=== PATIENT | female | born 1950 | race Caucasian/White ===

== ENCOUNTER 2020-03-31 08:45 | Observation (INO) | payer MEDICARE, OTHER ==
--- NOTE | 2020-03-31 08:51 | EDM.PDOC ---
ED HPI GENERAL MEDICAL PROBLEM - General Chief Complaint: General Stated Complaint: weakness Time Seen by Provider: 03/31/20 08:51 Source of Information: Reports: Patient History Limitations: Reports: No Limitations - History of Present Illness INITIAL COMMENTS - FREE TEXT/NARRATIVE: Awoke this morning feeling weak and tired. Denies any contributing factors. Has been outside gardening doing her usual routine with no excessive straining, normal intake. No contributing factors that she can specifically state, significant other with her has no symptoms. Denies any falls, denies bumping or striking her head, denies any visual or auditory changes. Denies COVID exposures, denies any recent travel or medical exposures. Onset: Today, Sudden Onset Date: 03/31/20 Onset Time: 08:00 Duration: Hour(s): Location: Reports: Generalized Severity: Moderate Improves with: Reports: None Worsens with: Reports: None Associated Symptoms: Reports: No Other Symptoms - Related Data Allergies Allergy/AdvReac Type Severity Reaction Status Date / Time No Known Drug Allergies Allergy Cannot Verified 03/31/20 08:59 Remember Home Meds: Home Meds . [No Known Home Meds] 03/31/20 [History] Past Medical History - Past Health History Medical/Surgical History: Denies Medical/Surgical History Social & Family History - Family History Family Medical History: Noncontributory - Tobacco Use Smoking Status *Q: Never Smoker - Caffeine Use Caffeine Use: Reports: Coffee - Alcohol Use Alcohol Use History: Yes Alcohol Use Frequency: Rarely ED ROS GENERAL - Review of Systems Review Of Systems: See Below Constitutional: Reports: No Symptoms HEENT: Reports: No Symptoms Respiratory: Reports: No Symptoms Cardiovascular: Reports: No Symptoms Endocrine: Reports: No Symptoms GI/Abdominal: Reports: No Symptoms : Reports: No Symptoms Musculoskeletal: Reports: No Symptoms Skin: Reports: No Symptoms Neurological: Reports: No Symptoms Psychiatric: Reports: No Symptoms Hematologic/Lymphatic: Reports: No Symptoms Immunologic: Reports: No Symptoms ED EXAM, GENERAL - Physical Exam Exam: See Below Free Text/Narrative:: In a seated position, Nilan Barany testing performed left side negative, right side showing a wide "catching" horizontal nystagmus. Within minutes of testing noted an increase in nausea and dizziness. 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 Plantar flexion dorsiflexion is intact and symmetrical on command. Exam Limited By: No Limitations General Appearance: Alert, WD/WN, No Apparent Distress, Mild Distress Ears: Normal External Exam Nose: Normal Inspection, Normal Mucosa, No Blood Throat/Mouth: Normal Inspection, Normal Lips, Normal Teeth, Normal Gums, Normal Oropharynx, Normal Voice (Very soft-spoken), No Airway Compromise Head: Atraumatic, Normocephalic Neck: Normal Inspection, Supple, Non-Tender, Full Range of Motion Respiratory/Chest: No Respiratory Distress, Lungs Clear, Normal Breath Sounds, No Accessory Muscle Use, Chest Non-Tender Cardiovascular: Normal Peripheral Pulses, Regular Rate, Rhythm, No Edema, No Gallop, No JVD, No Murmur, No Rub GI/Abdominal: Normal Bowel Sounds, Soft, Non-Tender, No Organomegaly, No Distention, No Abnormal Bruit, No Mass (Female) Exam: Deferred Rectal (Female) Exam: Deferred Back Exam: Normal Inspection, Full Range of Motion, NT Extremities: Normal Inspection, Normal Range of Motion, Non-Tender, Normal Capillary Refill, No Pedal Edema Neurological: Alert, Oriented, CN II-XII Intact, Normal Cognition, Normal Reflexes, No Motor/Sensory Deficits Psychiatric: Normal Affect, Normal Mood Skin Exam: Warm, Dry, Intact, Normal Color, No Rash Lymphatic: No Adenopathy EKG INTERPRETATION EKG Date: 03/31/20 Time: 09:06 Rhythm: NSR [place]: Normal P-Wave: Present QRS: Normal ST-T: Normal QT: Normal Comparison: NA - No Prior EKG Course - Vital Signs Last Recorded V/S: Last Vital Signs Temp 36.9 C 03/31/20 08:50 Pulse 87 03/31/20 10:54 Resp 19 03/31/20 10:54 BP 142/60 H 03/31/20 10:54 Pulse Ox 96 03/31/20 10:54 - Orders/Labs/Meds Orders: Active Orders 24 hr Category Date Time Status Peripheral IV Care [RC] . DIRECTED Care 03/31/20 09:00 Inactive CULTURE URINE [RM] Stat Lab 03/31/20 10:20 Received EKG 12 Lead [EK] Stat Ther 03/31/20 08:58 Stop Req Labs: Laboratory Tests 03/31/20 03/31/20 03/31/20 Range/Units 09:11 09:11 09:11 WBC 5.86 (5.00-10.00) 10^3/uL RBC 5.29 (3.80-5.50) 10^6/uL Hgb 14.7 (12.0-16.0) g/dL Hct 44.3 (37.0-47.0) % MCV 83.7 (82.0-92.0) fL MCH 27.8 (27.0-31.0) pg MCHC 33.2 (32.0-36.0) g/dL RDW 12.8 (11.5-14.5) % Plt Count 206 (150-400) 10^3/uL MPV 9.9 (7.4-10.4) fL Immature Gran % (Auto) 0.0 (0.0-5.0) % Neut % (Auto) 68.4 (50.0-70.0) % Lymph % (Auto) 22.4 (20.0-40.0) % [place] % (Auto) 7.2 (2.0-8.0) % Eos % (Auto) 1.5 (1.0-3.0) % Baso % (Auto) 0.5 (0.0-1.0) % Neut # (Auto) 4.01 (2.50-7.00) 10^3/uL Lymph # (Auto) 1.31 (1.00-4.00) 10^3/uL [place] # (Auto) 0.42 (0.10-0.80) 10^3/uL Eos # (Auto) 0.09 L (0.10-0.30) 10^3/uL Baso # (Auto) 0.03 (0.00-0.10) 10^3/uL Immature Gran # (Auto) 0.00 (0.00-0.50) 10^3/uL Sodium 144 (136-145) mmol/L Potassium 3.6 (3.3-5.3) mmol/L Chloride 106 (98-115) mmol/L Carbon Dioxide 25.3 (21.0-32.0) mmol/L Anion Gap 16.3 H (5-15) mmol/L BUN 15 (6-25) mg/dL Creatinine 0.74 (0.51-1.17) mg/dL Est Cr Clr Drug Dosing 56.75 mL/min Estimated GFR (MDRD) > 60 mL/min Glucose 117 H (75 - 99) mg/dL Calcium 8.8 (8.7-10.3) mg/dL Total Bilirubin 0.6 (0.2-1.0) mg/dL AST 15 (15-37) U/L ALT 17 (12-78) U/L Alkaline Phosphatase 75 (46-116) IU/L Creatine Kinase 107 (26-276) U/L CK-MB (CK-2) 1.30 (0.00-4.30) ng/mL Troponin I 0.04 (0.00-0.070) ng/mL Total Protein 7.2 (6.4-8.2) g/dL Albumin 3.69 (3.00-4.80) g/dL TSH, Ultra Sensitive 1.420 (0.340-4.820) uIU/mL Specimen Type Urine Color (YELLOW) Urine Appearance (CLEAR) Urine pH (5.0-9.0) Ur Specific [place] (1.005-1.030) Urine Protein (NEGATIVE) mg/dL Urine Glucose (UA) (NEGATIVE) mg/dL Urine Ketones (NEGATIVE) mg/dL Urine Occult Blood (NEGATIVE) Urine Nitrite (NEGATIVE) Urine Bilirubin (NEGATIVE) Urine Urobilinogen (0.2-1.0) E.U./dL Ur Leukocyte Esterase (NEGATIVE) Urine RBC (0-5) /HPF Urine WBC (0-5) /HPF Ur Epithelial Cells /LPF Amorphous Sediment (0/HPF) /HPF Urine Bacteria (NONE TO FEW) /HPF 16 Range/Units 10:20 WBC (5.00-10.00) 10^3/uL RBC (3.80-5.50) 10^6/uL Hgb (12.0-16.0) g/dL Hct (37.0-47.0) % MCV (82.0-92.0) fL MCH (27.0-31.0) pg MCHC (32.0-36.0) g/dL RDW (11.5-14.5) % Plt Count (150-400) 10^3/uL MPV (7.4-10.4) fL Immature Gran % (Auto) (0.0-5.0) % Neut % (Auto) (50.0-70.0) % Lymph % (Auto) (20.0-40.0) % [place] % (Auto) (2.0-8.0) % Eos % (Auto) (1.0-3.0) % Baso % (Auto) (0.0-1.0) % Neut # (Auto) (2.50-7.00) 10^3/uL Lymph # (Auto) (1.00-4.00) 10^3/uL [place] # (Auto) (0.10-0.80) 10^3/uL Eos # (Auto) (0.10-0.30) 10^3/uL Baso # (Auto) (0.00-0.10) 10^3/uL Immature Gran # (Auto) (0.00-0.50) 10^3/uL Sodium (136-145) mmol/L Potassium (3.3-5.3) mmol/L Chloride (98-115) mmol/L Carbon Dioxide (21.0-32.0) mmol/L Anion Gap (5-15) mmol/L BUN (6-25) mg/dL Creatinine (0.51-1.17) mg/dL Est Cr Clr Drug Dosing mL/min Estimated GFR (MDRD) mL/min Glucose (75 - 99) mg/dL Calcium (8.7-10.3) mg/dL Total Bilirubin (0.2-1.0) mg/dL AST (15-37) U/L ALT (12-78) U/L Alkaline Phosphatase (46-116) IU/L Creatine Kinase (26-276) U/L CK-MB (CK-2) (0.00-4.30) ng/mL Troponin I (0.00-0.070) ng/mL Total Protein (6.4-8.2) g/dL Albumin (3.00-4.80) g/dL TSH, Ultra Sensitive (0.340-4.820) uIU/mL Specimen Type Urincc Urine Color Yellow (YELLOW) Urine Appearance Slightly cloudy H (CLEAR) Urine pH 7.5 (5.0-9.0) Ur Specific [place] 1.020 (1.005-1.030) Urine Protein Negative (NEGATIVE) mg/dL Urine Glucose (UA) Negative (NEGATIVE) mg/dL Urine Ketones Negative (NEGATIVE) mg/dL Urine Occult Blood Negative (NEGATIVE) Urine Nitrite Negative (NEGATIVE) Urine Bilirubin Negative (NEGATIVE) Urine Urobilinogen 0.2 (0.2-1.0) E.U./dL Ur Leukocyte Esterase Small H (NEGATIVE) Urine RBC 0-5 (0-5) /HPF Urine WBC 0-5 (0-5) /HPF Ur Epithelial Cells Few /LPF Amorphous Sediment Few (0/HPF) /HPF Urine Bacteria Few (NONE TO FEW) /HPF Meds: Medications Discontinued Medications Generic Name Dose Route Start Last Admin Trade Name Freq PRN Reason Stop Dose Admin Sodium Chloride 1,000 mls @ 999 mls/hr 03/31/20 09:00 03/31/20 09:41 Normal Saline IV 03/31/20 10:00 999 mls/hr .BOLUS ONE Administration Ondansetron HCl 8 mg 03/31/20 09:39 03/31/20 09:42 Zofran IVPUSH 03/31/20 09:40 8 mg ONETIME ONE Administration Sodium Chloride 10 ml 03/31/20 09:00 03/31/20 09:47 Saline Flush FLUSH 10 ml Q8HR PRN Administration keep vein open - Radiology Interpretation Free Text/Narrative:: 2 view chest x-ray showing mild cardiomegaly with no evidence of CHF CT Results Date: 03/31/20 (Negative of any intracranial issues) CT Results Time: 11:00 - Re-Assessments/Exams Free Text/Narrative Re-Assessment/Exam: 03/31/20 10:23 Rosetta from physical therapy did a Hallpike maneuver which was negative at this time. Occasional PVCs have been seen on the monitor which was reported to us noticed during ambulance transport, but are now becoming more prominent. Unifocal presentation is noted. CT the head will be obtained to rule out any anomalies and consideration for observation status would be given pending no pertinent findings at this time. Cardiac rhythm will be continued to monitor for change or increase in PVC activity. Departure - Departure Time of Disposition: 11:17 Disposition: Admitted As Inpatient 67 Condition: Good Clinical Impression: Weakness, Dizziness, Cardiomegaly, Unifocal PVCs - Discharge Information Sepsis Event Note (ED) - Focused Exam Vital Signs: Vital Signs Temp Pulse Resp BP Pulse Ox 03/31/20 10:54 87 19 142/60 H 96 03/31/20 10:39 92 13 149/66 H 97 03/31/20 09:50 85 19 159/73 H 98 03/31/20 08:50 36.9 C 90 21 H 119/52 L ED Communication - ED Communication Date/Time Date: 03/31/20 Time Called: 11:16 - Discussed Case With (1) Discussed Case With (1): Admitting Provider Person/s Notified (1): Will Cee Date: 03/31/20 Time Called: 11:17 - Problem List & Annotations (1) Weakness SNOMED Code(s): 06247213 Code(s): R53.1 - WEAKNESS Status: Acute Priority: High Current Visit: Yes (2) Dizziness SNOMED Code(s): 728660185, 987765420 Code(s): R42 - DIZZINESS AND GIDDINESS Status: Acute Current Visit: Yes (3) Benign paroxysmal positional vertigo of right ear SNOMED Code(s): 891670543 Code(s): H81.11 - BENIGN PAROXYSMAL VERTIGO, RIGHT EAR Status: Acute Priority: High Current Visit: Yes (4) Cardiomegaly SNOMED Code(s): 7499549 Code(s): I51.7 - CARDIOMEGALY Status: Chronic Priority: Medium Current Visit: Yes (5) Unifocal PVCs SNOMED Code(s): 73107982 Code(s): I49.3 - VENTRICULAR PREMATURE DEPOLARIZATION Status: Acute Current Visit: Yes - Problem List Review Problem List Initiated/Reviewed/Updated: Yes - My Orders Last 24 Hours: My Active Orders 03/31/20 08:58 EKG 12 Lead [EK] Stat 03/31/20 09:00 Peripheral IV Care [RC] . DIRECTED 03/31/20 10:20 CULTURE URINE [RM] Stat - Assessment/Plan Last 24 Hours: My Active Orders 03/31/20 08:58 EKG 12 Lead [EK] Stat 03/31/20 09:00 Peripheral IV Care [RC] . DIRECTED 03/31/20 10:20 CULTURE URINE [RM] Stat Plan: Admission to observation status Brayan
[2020-03-31] MEDS ORDERED: Sodium Chloride 0.9% 10 ML Syringe FLUSH PRN ×2 (09:00→12:02)
[2020-03-31] MEDS ORDERED: Sodium Chloride 0.9% 1,000 ML IV ONE (09:00)
[2020-03-31] MEDS ORDERED: Ondansetron 4 MG/2 ML SDV IVPUSH ONE (09:39)
[2020-03-31 09:49] LABS: ANION GAP 16.3 mmol/L (5-15); CHLORIDE,CL 106 mmol/L (98-115); SODIUM,NA 144 mmol/L (136-145)
--- NOTE | 2020-03-31 09:56 | CR ---
[id number] RAD/RAD Chest PA And Lateral EXAM: FRONTAL AND LATERAL CHEST INDICATION: WEAKNESS. COMPARISON: None. DISCUSSION: The heart is mildly enlarged without evidence of congestive heart failure. No acute infiltrates. No effusions. IMPRESSION: 1. Mild cardiomegaly without evidence of congestive heart failure. Jevon Womack MD 03/31/20 0955 Thank you for allowing us to participate in the care of your patient.
--- NOTE | 2020-03-31 11:04 | CT ---
[id number] CT/CT Head WO IV EXAM: CT Head WO IV CLINICAL DATA: DIZZINESS AND WEAKNESS COMPARISON: NO PREVIOUS SIMILAR EXAM IS AVAILABLE FOR COMPARISON. FINDINGS: There is no mass or mass effect. There is no hemorrhage or hydrocephalus. There are no extra-axial fluid collections. There are no sites of abnormal attenuation. IMPRESSION: NO PLAIN CT EVIDENCE OF ACUTE INTRACRANIAL PROCESS. Reggie Coleman MD 03/31/20 [id number] Thank you for allowing us to participate in the care of your patient.
--- NOTE | 2020-03-31 11:49 | PCM.HP.2 ---
H&P History of Present Illness - General Date of Service: 03/31/20 Admit Problem/Dx: Admission Diagnosis/Problem Admission Diagnosis/Problem Weakness Source of Information: Patient, Old Records, Provider, RN History Limitations: Reports: No Limitations - Related Data Allergies/Adverse Reactions: Allergies Allergy/AdvReac Type Severity Reaction Status Date / Time No Known Drug Allergies Allergy Cannot Verified 03/31/20 08:59 Remember Home Medications: Home Meds . 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 Musculoskeletal History: Reports: Osteoporosis Neurological History: Reports: None Psychiatric History: Reports: None Endocrine/Metabolic History: Reports: Obesity/BMI 30+, Osteoporosis, Vitamin D Deficiency Hematologic History: Reports: None Immunologic History: Reports: None Oncologic (Cancer) History: Reports: Other (See Below) Other Oncologic History: skin cancer Dermatologic History: Reports: None - Infectious Disease History Infectious Disease History: Reports: Chicken Pox, Measles, Mumps - Past Surgical History HEENT Surgical History: Reports: None Cardiovascular Surgical History: Reports: None Respiratory Surgical History: Reports: None GI Surgical History: Reports: None Female Surgical History: Reports: Tubal Ligation Endocrine Surgical History: Reports: None Neurological Surgical History: Reports: None Oncologic Surgical History: Reports: None Dermatological Surgical History: Reports: None Social & Family History - Family History Family Medical History: Noncontributory - Tobacco Use Smoking Status *Q: Never Smoker Second Hand Smoke Exposure: Yes - Caffeine Use Caffeine Use: Reports: Coffee - Recreational Drug Use Recreational Drug Use: No H&P Review of Systems - Review of Systems: Review Of Systems: See Below General: Reports: Malaise, Weakness, Fatigue, Decreased Appetite. Denies: Fever HEENT: Reports: Headaches. Denies: Post Nasal Drip, Sore Throat, Vertigo, Visual Changes Pulmonary: Reports: No Symptoms Cardiovascular: Reports: Palpitations. Denies: Syncope, Claudication, Blood Pressure Problem Gastrointestinal: Reports: Decreased Appetite Genitourinary: Denies: Dysuria, Frequency, Burning, Pain, Urgency, Incontinence Musculoskeletal: Reports: No Symptoms Skin: Reports: No Symptoms Psychiatric: Reports: Anxiety. Denies: Agitation Neurological: Reports: Confusion, Dizziness. Denies: Numbness, Paresthesia, Pre-Existing Deficit, Seizure, Syncope, Tingling, Tremors, Trouble Speaking, Difficulty Walking, Change in Speech Hematologic/Lymphatic: Reports: No Symptoms Immunologic: Reports: No Symptoms Exam - Exam Exam: See Below - Vital Signs Vital Signs: Last Vital Signs Temp 98.5 F 03/31/20 08:50 Pulse 87 03/31/20 10:54 Resp 19 03/31/20 10:54 BP 142/60 H 03/31/20 10:54 Pulse Ox 96 03/31/20 10:54 Weight: 180 lb - Exam General: Alert, Oriented HEENT: PERRLA, Hearing Intact, Mucosa Moist & [place], Nares Patent, Normal Nasal Septum, Posterior Pharynx Clear, Conjunctiva Clear, EOMI, EACs Clear, TMs Clear Neck: Supple Lungs: Clear to Auscultation, Normal Respiratory Effort Cardiovascular: Regular Rate, Regular Rhythm GI/Abdominal Exam: Normal Bowel Sounds, Soft. No: Distended (Female) Exam: Deferred Back Exam: No: CVA Tenderness (L), CVA Tenderness (R) Peripheral Pulses: 2+: Radial (L), Radial (R) Skin: Warm, Dry, Intact, Other (Bilateral venous varicosities) Neurological: Cranial Nerves Intact, Normal Speech, Sensation Intact, Other (Negative pronator drift). No: Focal Deficit, Babinski Neuro Extensive - Mental Status: Alert, Oriented x3, Other (Patient memory seems to be improving) Neuro Extensive - Motor, Sensory, Reflexes: CN II-XII Intact. No: Tongue Deviation (L), Tongue Deviation (R), Dysarthria, Expressive Aphasia, Facial palsy (L), Facial Palsy (R), Abnormal Romberg, Abnormal Finger to Nose, Abnormal Heel to Kumar Psychiatric: Alert, Normal Affect - Patient Data Lab Results Last 24 hrs: Laboratory Results - last 24 hr 03/31/20 03/31/20 03/31/20 Range/Units 09:11 09:11 09:11 WBC 5.86 (5.00-10.00) 10^3/uL RBC 5.29 (3.80-5.50) 10^6/uL Hgb 14.7 (12.0-16.0) g/dL Hct 44.3 (37.0-47.0) % MCV 83.7 (82.0-92.0) fL MCH 27.8 (27.0-31.0) pg MCHC 33.2 (32.0-36.0) g/dL RDW 12.8 (11.5-14.5) % Plt Count 206 (150-400) 10^3/uL MPV 9.9 (7.4-10.4) fL Immature Gran % (Auto) 0.0 (0.0-5.0) % Neut % (Auto) 68.4 (50.0-70.0) % Lymph % (Auto) 22.4 (20.0-40.0) % [place] % (Auto) 7.2 (2.0-8.0) % Eos % (Auto) 1.5 (1.0-3.0) % Baso % (Auto) 0.5 (0.0-1.0) % Neut # (Auto) 4.01 (2.50-7.00) 10^3/uL Lymph # (Auto) 1.31 (1.00-4.00) 10^3/uL [place] # (Auto) 0.42 (0.10-0.80) 10^3/uL Eos # (Auto) 0.09 L (0.10-0.30) 10^3/uL Baso # (Auto) 0.03 (0.00-0.10) 10^3/uL Immature Gran # (Auto) 0.00 (0.00-0.50) 10^3/uL Sodium 144 (136-145) mmol/L Potassium 3.6 (3.3-5.3) mmol/L Chloride 106 (98-115) mmol/L Carbon Dioxide 25.3 (21.0-32.0) mmol/L Anion Gap 16.3 H (5-15) mmol/L BUN 15 (6-25) mg/dL Creatinine 0.74 (0.51-1.17) mg/dL Est Cr Clr Drug Dosing 56.75 mL/min Estimated GFR (MDRD) > 60 mL/min Glucose 117 H (75 - 99) mg/dL Calcium 8.8 (8.7-10.3) mg/dL Total Bilirubin 0.6 (0.2-1.0) mg/dL AST 15 (15-37) U/L ALT 17 (12-78) U/L Alkaline Phosphatase 75 (46-116) IU/L Creatine Kinase 107 (26-276) U/L CK-MB (CK-2) 1.30 (0.00-4.30) ng/mL Troponin I 0.04 (0.00-0.070) ng/mL Total Protein 7.2 (6.4-8.2) g/dL Albumin 3.69 (3.00-4.80) g/dL TSH, Ultra Sensitive 1.420 (0.340-4.820) uIU/mL Specimen Type Urine Color (YELLOW) Urine Appearance (CLEAR) Urine pH (5.0-9.0) Ur Specific [place] (1.005-1.030) Urine Protein (NEGATIVE) mg/dL Urine Glucose (UA) (NEGATIVE) mg/dL Urine Ketones (NEGATIVE) mg/dL Urine Occult Blood (NEGATIVE) Urine Nitrite (NEGATIVE) Urine Bilirubin (NEGATIVE) Urine Urobilinogen (0.2-1.0) E.U./dL Ur Leukocyte Esterase (NEGATIVE) Urine RBC (0-5) /HPF Urine WBC (0-5) /HPF Ur Epithelial Cells /LPF Amorphous Sediment (0/HPF) /HPF Urine Bacteria (NONE TO FEW) /HPF /16/20 Range/Units 10:20 WBC (5.00-10.00) 10^3/uL RBC (3.80-5.50) 10^6/uL Hgb (12.0-16.0) g/dL Hct (37.0-47.0) % MCV (82.0-92.0) fL MCH (27.0-31.0) pg MCHC (32.0-36.0) g/dL RDW (11.5-14.5) % Plt Count (150-400) 10^3/uL MPV (7.4-10.4) fL Immature Gran % (Auto) (0.0-5.0) % Neut % (Auto) (50.0-70.0) % Lymph % (Auto) (20.0-40.0) % [place] % (Auto) (2.0-8.0) % Eos % (Auto) (1.0-3.0) % Baso % (Auto) (0.0-1.0) % Neut # (Auto) (2.50-7.00) 10^3/uL Lymph # (Auto) (1.00-4.00) 10^3/uL [place] # (Auto) (0.10-0.80) 10^3/uL Eos # (Auto) (0.10-0.30) 10^3/uL Baso # (Auto) (0.00-0.10) 10^3/uL Immature Gran # (Auto) (0.00-0.50) 10^3/uL Sodium (136-145) mmol/L Potassium (3.3-5.3) mmol/L Chloride (98-115) mmol/L Carbon Dioxide (21.0-32.0) mmol/L Anion Gap (5-15) mmol/L BUN (6-25) mg/dL Creatinine (0.51-1.17) mg/dL Est Cr Clr Drug Dosing mL/min Estimated GFR (MDRD) mL/min Glucose (75 - 99) mg/dL Calcium (8.7-10.3) mg/dL Total Bilirubin (0.2-1.0) mg/dL AST (15-37) U/L ALT (12-78) U/L Alkaline Phosphatase (46-116) IU/L Creatine Kinase (26-276) U/L CK-MB (CK-2) (0.00-4.30) ng/mL Troponin I (0.00-0.070) ng/mL Total Protein (6.4-8.2) g/dL Albumin (3.00-4.80) g/dL TSH, Ultra Sensitive (0.340-4.820) uIU/mL Specimen Type Urincc Urine Color Yellow (YELLOW) Urine Appearance Slightly cloudy H (CLEAR) Urine pH 7.5 (5.0-9.0) Ur Specific [place] 1.020 (1.005-1.030) Urine Protein Negative (NEGATIVE) mg/dL Urine Glucose (UA) Negative (NEGATIVE) mg/dL Urine Ketones Negative (NEGATIVE) mg/dL Urine Occult Blood Negative (NEGATIVE) Urine Nitrite Negative (NEGATIVE) Urine Bilirubin Negative (NEGATIVE) Urine Urobilinogen 0.2 (0.2-1.0) E.U./dL Ur Leukocyte Esterase Small H (NEGATIVE) Urine RBC 0-5 (0-5) /HPF Urine WBC 0-5 (0-5) /HPF Ur Epithelial Cells Few /LPF Amorphous Sediment Few (0/HPF) /HPF Urine Bacteria Few (NONE TO FEW) /HPF Result Diagrams: 03/31/20 09:11 04/01/20 10:53 Sepsis Event Note - Evaluation Sepsis Screening Result: No Definite Risk - Focused Exam Vital Signs: Vital Signs Temp Pulse Resp BP Pulse Ox 03/31/20 10:54 87 19 142/60 H 96 03/31/20 10:39 92 13 149/66 H 97 03/31/20 09:50 85 19 159/73 H 98 03/31/20 08:50 98.5 F 90 21 H 119/52 L Date Exam was Performed: 04/01/20 Time Exam was Performed: 12:46 Problem List Initiated/Reviewed/Updated: Yes Orders Last 24hrs: Active Orders 24 hr Category Date Time Status Patient Status [ADT] Routine ADT 03/31/20 11:21 Active Peripheral IV Care [RC] . DIRECTED Care 03/31/20 09:00 Inactive CULTURE URINE [RM] Stat Lab 03/31/20 10:20 Received EKG 12 Lead [EK] Stat Ther 03/31/20 08:58 Stop Req Assessment/Plan Comment:: History of present illness 70-year-old female presented to the ED vague symptoms of fatigue and weakness. Patient stated she was out in the heat doing gardening however denies any excessive exertion. Denies any falls chest pain or shortness of breath. Denies COVID exposures, denies any recent travel or medical exposures. In reviewing her EMR, this past October patient was evaluated and treated for sinusitis , Eu stachian tube dysfuntion along with cerumen impaction and was placed on fluticasone. Patient does admit to mild overexertion while gardening the past day or so ED work-up/findings Head CT, within normal limits Cxr: Cardiomegaly, no acute processes EKG: Sinus rhythm evidence of LVH VS: 149/66, afebrile, HR normal, some unifocal PVS Hallpike: Neg TSH: WNL Hematology/CMP: non-concerning Primary hospital problems Transient global amnesia, suspect anterograde Hypertrophy, PVCs Anxiety, appears situational Chronic problems Obesity, Varicosities BLE Disposition/overall plan Place in observation status for further cardiac monitoring and IV fluids and neuro checks --MRI Brain --Alprazolam today --Orthostatics - Mortality Measure Prognosis:: Good
[2020-03-31] MEDS ORDERED: ALPRAZolam 0.25 MG Tab PO ONE (13:44)
[2020-03-31] MEDS: Sodium Chloride 0.9% 1,000 ML IV SCH (14:23)
[2020-03-31] MEDS ORDERED: ALPRAZolam 0.25 MG Tab PO PRN (20:49)
[2020-04-01] MEDS: Ondansetron 4 MG/2 ML SDV IVPUSH PRN (09:30)
--- NOTE | 2020-04-01 10:49 | PCM.PN ---
- General Info Date of Service: 04/01/20 Functional Status: Reports: Pain Controlled, Urinating, New Symptoms (More anxious today). Denies: Tolerating Diet, Ambulating - Review of Systems General: Reports: Fatigue, Malaise. Denies: Fever, Chills, Night Sweats, Appetite HEENT: Reports: No Symptoms Pulmonary: Denies: Shortness of Breath, Cough, Sputum, Wheezing Cardiovascular: Reports: Palpitations. Denies: Chest Pain, Orthopnea, PND, Edema, Lightheadedness Gastrointestinal: Reports: Nausea Genitourinary: Reports: No Symptoms Musculoskeletal: Reports: No Symptoms Skin: Reports: No Symptoms Neurological: Denies: Confusion, Headache, Paresthesia, Seizure, Syncope Psychiatric: Reports: Anxiety. Denies: Confusion - Patient Data Vitals - Most Recent: Last Vital Signs Temp 98.7 F 04/01/20 07:00 Pulse 81 04/01/20 07:00 Resp 16 04/01/20 07:00 BP 120/66 04/01/20 07:00 Pulse Ox 96 04/01/20 07:00 Orthostatic Blood Pressure [ 152/89 Standing] Orthostatic Blood Pressure [ 149/83 Sitting] Orthostatic Blood Pressure [ 144/84 Supine] Weight - Most Recent: 180 lb I&O - Last 24 Hours: Intake & Output 03/31/20 04/01/20 04/01/20 22:59 06:59 14:59 Intake Total 1445 100 Balance 1445 100 Lab Results Last 24 Hours: Laboratory Results - last 24 hr 03/31/20 03/31/20 Range/Units 10:20 12:50 Specimen Type Urincc Urine Color Yellow (YELLOW) Urine Appearance Slightly cloudy H (CLEAR) Urine pH 7.5 (5.0-9.0) Ur Specific [place] 1.020 (1.005-1.030) Urine Protein Negative (NEGATIVE) mg/dL Urine Glucose (UA) Negative (NEGATIVE) mg/dL Urine Ketones Negative (NEGATIVE) mg/dL Urine Occult Blood Negative (NEGATIVE) Urine Nitrite Negative (NEGATIVE) Urine Bilirubin Negative (NEGATIVE) Urine Urobilinogen 0.2 (0.2-1.0) E.U./dL Ur Leukocyte Esterase Small H (NEGATIVE) Urine RBC 0-5 (0-5) /HPF Urine WBC 0-5 (0-5) /HPF Ur Epithelial Cells Few /LPF Amorphous Sediment Few (0/HPF) /HPF Urine Bacteria Few (NONE TO FEW) /HPF SARS-CoV-2 RNA (RT-PCR) Negative (NEGATIVE) Med Orders - Current: Current Medications Alprazolam (Xanax) 0.25 mg PO BEDTIME PRN PRN Reason: Anxiety Sodium Chloride (Normal Saline) 1,000 mls @ 70 mls/hr IV ASDIRECTED CT Last Admin: 03/31/20 14:23 Dose: 70 mls/hr Documented by: Ondansetron HCl (Zofran) 4 mg IVPUSH Q4H PRN PRN Reason: Nausea/Vomiting Last Admin: 04/01/20 09:30 Dose: 4 mg Documented by: Sodium Chloride (Saline Flush) 10 ml FLUSH Q8HR PRN PRN Reason: keep vein open Discontinued Medications Alprazolam (Xanax) 0.25 mg PO ONETIME ONE Stop: 03/31/20 13:45 Last Admin: 03/31/20 14:06 Dose: 0.25 mg Documented by: Sodium Chloride (Normal Saline) 1,000 mls @ 999 mls/hr IV .BOLUS ONE Stop: 03/31/20 10:00 Last Admin: 03/31/20 09:41 Dose: 999 mls/hr Documented by: Ondansetron HCl (Zofran) 8 mg IVPUSH ONETIME ONE Stop: 03/31/20 09:40 Last Admin: 03/31/20 09:42 Dose: 8 mg Documented by: Sodium Chloride (Saline Flush) 10 ml FLUSH Q8HR PRN PRN Reason: keep vein open Last Admin: 03/31/20 09:47 Dose: 10 ml Documented by: - Exam Quality Assessment: No: Supplemental Oxygen General: Alert, Oriented, Cooperative. No: Mild Distress HEENT: Mucous Membr. Moist/[place] Neck: No JVD Lungs: Clear to Auscultation, Normal Respiratory Effort Cardiovascular: Regular Rate, Regular Rhythm GI/Abdominal Exam: Normal Bowel Sounds, Soft, Non-Tender Extremities: Other (Varicosities BLE) Peripheral Pulses: 2+: Radial (L), Radial (R) Skin: Warm, Dry, Intact Neurological: No New Focal Deficit, Normal Speech, Normal Tone, Cranial Nerves Intact Psy/Mental Status: Anxious Sepsis Event Note - Evaluation Sepsis Screening Result: No Definite Risk - Focused Exam Vital Signs: Vital Signs Temp Pulse Resp BP Pulse Ox Pulse Ox 04/01/20 07:00 98.7 F 81 16 120/66 96 96 04/01/20 02:56 98.0 F 78 16 124/70 95 03/31/20 23:00 98.1 F 84 16 114/63 94 L Date Exam was Performed: 04/01/20 Time Exam was Performed: 12:38 - Problem List Review Problem List Initiated/Reviewed/Updated: Yes - My Orders Last 24 Hours: My Active Orders 03/31/20 Lunch Regular Diet [DIET] 03/31/20 12:02 Bedrest Bathroom Privileges [RC] 21 February Shower [RC] Oxygen Therapy [RC] .PRN Vital Signs [RC] 03,07,11,15,19,23 Sodium Chloride 0.9% [Saline Flush] 10 ml FLUSH Q8HR PRN Peripheral IV Insertion Adult [OM.PC] Routine Resuscitation Status Routine 03/31/20 12:03 Cardiac Monitoring [RC] 03,07,11,15,19,23 Peripheral IV Care [RC] 03/31/20 12:04 Ondansetron [Zofran] 4 mg IVPUSH Q4H PRN 03/31/20 12:07 Neuro Check [RC] 03/31/20 12:15 Sodium Chloride 0.9% [Normal Saline] 1,000 ml IV ASDIRECTED 03/31/20 20:49 ALPRAZolam [Xanax] 0.25 mg PO BEDTIME PRN 04/01/20 10:33 B-TYPE NATRIURETIC PEPTIDE,BNP [CHEM] Routine - Plan Plan:: History of present illness 70-year-old female presented to the ED vague symptoms of fatigue and weakness. Patient stated she was out in the heat doing gardening however denies any excessive exertion. Denies any falls chest pain or shortness of breath. Denies COVID exposures, denies any recent travel or medical exposures. In reviewing her EMR, this past October patient was evaluated and treated for sinusitis , Eustachian tube dysfuntion along with cerumen impaction and was placed on fluticasone. ED work-up/findings Head CT, within normal limits Cxr: Cardiomegaly, no acute processes EKG: Possible LVH however sinus VS: 149/66, afebrile, HR normal, some unifocal PVS Hallpike: Neg TSH: WNL Hematology/CMP: non-concerning No overnight calls or concerns however patient slightly more anxious today. Nurses noted last night 10-second run of bigeminy, patient with no chest pain however mildly nauseous ongoing. Primary hospital problems Transient global amnesia, suspect anterograde, improving Anxiety, situational with mild panic attacks Hypertrophy, PVCs DVT prophylaxis LMWH, ambulate Chronic Problems Obesity, Varicosities Disposition/overall plan --Continue OBS status per today for further monitoring --Given frequent PVCs/runs of bigeminy/hypertension/palpitations--add metoprolol succinate 25 mg --MRI Brain --BNP --48-hr Holter, order placed --Alprazolam today --Echocardiogram order placed outpatient --Cardiology referral, referral placed --Encourage up in halls QID today, to chair if in room --Orthostatics --Anticipate discharge in a.m. further outpatient follow-up/work-up
[2020-04-01] MEDS: Enoxaparin 40 MG/0.4 ML Syringe SUBCUT SCH (11:05)
[2020-04-01] MEDS: ALPRAZolam 0.25 MG Tab PO PRN (11:07)
[2020-04-01 11:34] LABS: ANION GAP 14.7 mmol/L (5-15); CHLORIDE,CL 109 mmol/L (98-115); SODIUM,NA 146 mmol/L (136-145)
[2020-04-01] MEDS: Sodium Chloride 0.9% 1,000 ML IV SCH (19:04)
[2020-04-01] MEDS ORDERED: Nitroglycerin 0.4 MG Tab.SL SL PRN (19:57)
[2020-04-01] MEDS ORDERED: Atropine 0.1 MG/ML 10 ML Syringe IVPUSH PRN (19:57)
[2020-04-01] MEDS ORDERED: Lidocaine 2% 100 MG/5 ML Syringe IVPUSH PRN (19:57)
[2020-04-01] MEDS ORDERED: EPINEPHrine 1:10,000 1 MG/10 ML Syringe IVPUSH PRN (19:57)
[2020-04-02] MEDS: Ondansetron 4 MG/2 ML SDV IVPUSH PRN (07:31)
[2020-04-02] MEDS: ALPRAZolam 0.25 MG Tab PO PRN (07:57)
[2020-04-02] MEDS ORDERED: Metoprolol Succinate 25 MG Tab.ER PO SCH (09:00)
[2020-04-02] MEDS ORDERED: Gadobenate Dimeglumine 529 MG/ML 10 ML SDV IVPUSH ONE (10:55)
--- NOTE | 2020-04-02 12:01 | MR ---
[id number] MR/MRI Brain and Stem WWO IV EXAM: MRI Brain and Stem WWO IV INDICATION: TRANSIENT GLOBAL AMNESIA COMPARISON: NO PREVIOUS SIMILAR EXAM IS AVAILABLE. FINDINGS: There is no mass or mass effect.. There is no hemorrhage or hydrocephalus. There are no sites of abnormal IV contrast enhancement or signal abnormality. Diffusion imaging is normal. Susceptibility imaging is normal. IMPRESSION: NO ABNORMALITY IDENTIFIED. Reggie Coleman MD 04/02/20 1200 Thank you for allowing us to participate in the care of your patient.
[2020-04-02] MEDS: Enoxaparin 40 MG/0.4 ML Syringe SUBCUT SCH (12:13)
--- NOTE | 2020-04-02 13:11 | PCM.DCSUM1 ---
Discharge Summary - Hospital Course Free Text/Narrative:: Date of admission: 03/31/2020 Date of discharge: 04/02/2020 Admission diagnoses: Transient global amnesia, suspect anterograde; resolved Hypertrophy, PVCs Anxiety, appears situational, improved Discharge diagnoses: Transient global amnesia, suspect anterograde Hypertrophy, PVCs Anxiety, appears situational Obesity Varicosities BLE Consultations: none Procedures: none Hospital course: 70-year-old female presented to the ED vague symptoms of fatigue and weakness. Patient stated she was out in the heat doing gardening however denies any excessive exertion. Denies any falls chest pain or shortness of breath. Denies COVID exposures, denies any recent travel or medical exposures. In reviewing he r EMR, this past October patient was evaluated and treated for sinusitis , Eustachian tube dysfuntion along with cerumen impaction and was placed on fluticasone. Patient does admit to mild overexertion while gardening the past day or so ED work-up/findings: Head CT, within normal limits Cxr: Cardiomegaly, no acute processes EKG: Possible LVH however sinus VS: 149/66, afebrile, HR normal, some unifocal PVS Hallpike: Neg TSH: WNL Hematology/CMP: non-concerning Day 1: No overnight calls or concerns however patient slightly more anxious today. Nurses noted last night 10-second run of bigeminy, patient with no chest pain however mildly nauseous ongoing. Day 2: No overnight calls or concerns however anxiety continues to persist. She overall states that she has mild headache, light-headedness and nausea, just a general feeling of "unwell". She continues to question if anxiety is causing her symptoms. She has had several transient episodes of tachycardia, although admits that her anxiety was high at that time. Nursing has noted bigeminy overnight as well as frequent PVCs on telemetry. Ordered metoprolol succinate 25mg orally given this AM. MRI brain completed this AM and negative. Discussed with patient that if she feels better this afternoon we can discharge her to home and continue work up as outpatient. Custom [employer] stopped back after lunch and patient states she is feeling much better and that she is ready for discharge to 's care. Tachycardia resolved, HR 69. BP continues to be elevated at 154/81 but will follow this closely as outpatient. Discharge and follow-up recommendations: - Discharge to home, self care - New medications at discharge: - Metoprolol succinate 25mg orally once daily - Alprazolam 0.25mg orally twice daily as needed for anxiety #10 with no refills - Follow-up - With [facility] provider of choice on Monday04/06/2020 - Schedule outpatient carotid US and echocardiogram - Cardiology consult (placed and awaiting call) - Recommendation to discuss SSRI for anxiety - Follow BP closely Diagnosis: Stroke: No - Discharge Data Discharge Date: 04/02/20 Discharge Disposition: Home, Self-Care 01 Condition: Good - Referral to Home Health Primary Care Physician: Lizzie Gardner MD - Patient Instructions Diet: Regular Diet as Tolerated Activity: As Tolerated Other/Special Instructions: Return to the emergency department if chest pain, shortness of breath, worsening palpitations. Make sure to keep a log of symptoms with the heart monitor. - Discharge Plan *PRESCRIPTION DRUG MONITORING PROGRAM REVIEWED*: Yes *COPY OF PRESCRIPTION DRUG MONITORING REPORT IN PATIENT WES: Yes Prescriptions/Med Rec: ALPRAZolam [Alprazolam Odt] 0.25 mg PO BID PRN #10 tab.rapdis PRN Reason: Anxiety Metoprolol Succinate [Toprol XL] 25 mg PO DAILY #30 tab.er Home Medications: Home Meds . [No Known Home Meds] 03/31/20 [History] ALPRAZolam [Alprazolam Odt] 0.25 mg PO BID PRN #10 tab.rapdis 04/02/20 [Rx] Metoprolol Succinate [Toprol XL] 25 mg PO DAILY #30 tab.er 04/02/20 [Rx] Oxygen Therapy Mode: Room Air Patient Handouts: Metoprolol extended-release tablets Referrals: Lizzie Garnder MD [Primary Care Provider] - (Follow up with primary care provider at [facility] on Monday (04/06/2020). Arrange for carotid US and Echocardiogram as outpatient. Will set up cardiology referral as outpatient.) - Discharge Summary/Plan Comment DC Time >30 min.: Yes - General Info Date of Service: 04/02/20 Subjective Update: 70 year old pleasant female sitting up in bed with at side. Reports general feeling of "unwell". Mild headache, nausea and light-headedness. Anxiety. Functional Status: Reports: Pain Controlled, Tolerating Diet, Ambulating - Review of Systems General: Denies: Fever, Weakness, Fatigue HEENT: Reports: Headaches (mild). Denies: Sinus Congestion, Sore Throat Pulmonary: Denies: Shortness of Breath, Cough, Sputum Cardiovascular: Reports: Palpitations, Lightheadedness. Denies: Chest Pain, Edema Gastrointestinal: Reports: Nausea. Denies: Abdominal Pain, Constipation, Diarrhea, Vomiting Genitourinary: Denies: Dysuria, Pain, Urgency, Hematuria Musculoskeletal: Denies: Neck Pain, Back Pain, Joint Pain Skin: Denies: Pallor, Diaphoresis, Rash Neurological: Reports: Headache. Denies: Confusion, Dizziness, Weakness Psychiatric: Reports: Anxiety. Denies: Depression, Mood Lability - Patient Data Vitals - Most Recent: Last Vital Signs Temp 36.6 C 04/02/20 11:00 Pulse 69 04/02/20 11:26 Resp 20 04/02/20 11:00 BP 164/92 H 04/02/20 11:26 Pulse Ox 97 04/02/20 11:00 Orthostatic Blood Pressure [ 149/84 Standing] Orthostatic Blood Pressure [ 148/89 Sitting] Orthostatic Blood Pressure [ 136/68 Supine] Weight - Most Recent: 81.647 kg I&O - Last 24 hours: Intake & Output 04/01/20 04/02/20 04/02/20 22:59 06:59 14:59 Intake Total 1068 530 Output Total 100 Balance 1068 430 JANE Results - Last 24 hrs: Microbiology 03/31/20 10:20 Urine Culture - Final Urine, Clean Catch MIXED CHETAN SUGGESTIVE OF CONTAMINATION. Med Orders - Current: Current Medications Alprazolam (Xanax) 0.25 mg PO BID PRN PRN Reason: Anxiety Last Admin: 04/02/20 07:57 Dose: 0.25 mg Documented by: Atropine Sulfate (Atropine 0.1 Mg/Ml) 0 mg IVPUSH ASDIRECTED PRN PRN Reason: Heart. Enoxaparin Sodium (Lovenox) 40 mg SUBCUT Q24H [facility] Last Admin: 04/02/20 12:13 Dose: 40 mg Documented by: Epinephrine HCl (Epinephrine 1:10,000) 1 mg IVPUSH ASDIRECTED PRN PRN Reason: Heart. Sodium Chloride (Normal Saline) 1,000 mls @ 70 mls/hr IV ASDIRECTED [facility] Last Admin: 04/01/20 19:04 Dose: 70 mls/hr Documented by: Lidocaine HCl (Xylocaine 2%) 0 mg IVPUSH ASDIRECTED PRN PRN Reason: Heart. Metoprolol Succinate (Toprol Xl) 25 mg PO DAILY [facility] Last Admin: 04/02/20 11:26 Dose: 25 mg Documented by: Nitroglycerin (Nitrostat) 0.4 mg SL ASDIRECTED PRN PRN Reason: Heart. Ondansetron HCl (Zofran) 4 mg IVPUSH Q4H PRN PRN Reason: Nausea/Vomiting Last Admin: 04/02/20 07:31 Dose: 4 mg Documented by: Sodium Chloride (Saline Flush) 10 ml FLUSH Q8HR PRN PRN Reason: keep vein open Discontinued Medications Alprazolam (Xanax) 0.25 mg PO ONETIME ONE Stop: 03/31/20 13:45 Last Admin: 03/31/20 14:06 Dose: 0.25 mg Documented by: Alprazolam (Xanax) 0.25 mg PO BEDTIME PRN PRN Reason: Anxiety Gadobenate Dimeglumine (Multihance) 10 ml IVPUSH ONETIME ONE Stop: 04/02/20 10:56 Last Admin: 04/02/20 11:53 Dose: 10 ml Documented by: Sodium Chloride (Normal Saline) 1,000 mls @ 999 mls/hr IV .BOLUS ONE Stop: 03/31/20 10:00 Last Admin: 03/31/20 09:41 Dose: 999 mls/hr Documented by: Ondansetron HCl (Zofran) 8 mg IVPUSH ONETIME ONE Stop: 03/31/20 09:40 Last Admin: 03/31/20 09:42 Dose: 8 mg Documented by: Sodium Chloride (Saline Flush) 10 ml FLUSH Q8HR PRN PRN Reason: keep vein open Last Admin: 03/31/20 09:47 Dose: 10 ml Documented by: - Exam Physical Findings Comments:: GENERAL: Well-appearing adult in no acute distress. HEENT: Normocephalic, atraumatic. Conjunctiva clear. Nares patent without discharge. Mucous membranes moist, posterior pharynx unremarkable. NECK: Supple, no masses. CV: Regular rate and rhythm, no murmurs, rubs, or gallops. 2+ radial pulses. PULMONARY: Normal effort, clear to auscultation bilaterally, no wheezes, rales, or rhonchi. ABDOMEN: Positive bowel sounds, soft, nontender, nondistended. EXTREMITIES: No edema, cyanosis, or clubbing. MUSCULOSKELETAL: Moves all extremities well. NEUROLOGICAL: No obvious deficits. DERMATOLOGIC: No rashes or suspicious lesions in exposed areas. PSYCHIATRIC: Alert, interactive, appropriate affect. Reports feeling of anxiety
== END 2020-04-02 14:10 | disposition home or self-care (01) ==
LOC: KA.ED 08:45 → KA.MS 11:21
PROVIDERS: ADMIT Nurse Practitioner; ATTEND Nurse Practitioner Family
DX: G45.4 Transient global amnesia (principal); H81.11 Benign paroxysmal vertigo, right ear; I51.7 Cardiomegaly; I49.3 Ventricular premature depolarization; F41.9 Anxiety disorder, unspecified; E66.9 Obesity, unspecified; I83.93 Asymptomatic varicose veins of bilateral lower extremities; Z20.828 Contact with and (suspected) exposure to other viral communicable diseases; Z68.32 Body mass index [BMI] 32.0-32.9, adult
CPT/HCPCS: 36415; 70450; 70553; 71046; 80048; 80053; 81001; 82550; 82553; 83880; 84443; 84484; 85025; 87086; 93005; 96361; 96372; 96374; 96376; 99284; 99285-25; A9270-GY; A9577; G0378; J1650; J2405; J7030; U0002

== ENCOUNTER 2020-05-28 15:35 | Emergency (ER) | payer MEDICARE, OTHER ==
[2020-05-28] MEDS ORDERED: Ondansetron 4 MG Tab.DIS ONE (16:18)
[2020-05-28] MEDS ORDERED: Ondansetron 4 MG Tab.DIS PO ONE (16:19)
[2020-05-28 16:20] LABS: ANION GAP 12.5 mmol/L (5-15); CHLORIDE,CL 105 mmol/L (98-115); SODIUM,NA 141 mmol/L (136-145)
--- NOTE | 2020-05-28 16:28 | CR ---
[id number] RAD/RAD Chest PA And Lateral EXAM: RAD Chest PA And Lateral CLINICAL DATA: NEUROLOGIC DEFICIT COMPARISON: NO PREVIOUS SIMILAR EXAM IS AVAILABLE. FINDINGS: The lungs are clear Right paratracheal fullness is identified The cardiac silhouette is enlarged IMPRESSION: NO ACUTE PROCESS RIGHT PARATRACHEAL FULLNESS OF UNCERTAIN SIGNIFICANCE CONSIDER CT IF FURTHER EVALUATION IS NEEDED Reggie Coleman MD 05/28/20 1144 Thank you for allowing us to participate in the care of your patient.
--- NOTE | 2020-05-28 16:55 | EDM.PDOC ---
ED HPI GENERAL MEDICAL PROBLEM - General Chief Complaint: General Stated Complaint: NUMBNESS IN R ARM AND LEGS, weakness Time Seen by Provider: 05/28/20 15:50 Source of Information: Reports: Patient, Family () History Limitations: Reports: No Limitations - History of Present Illness INITIAL COMMENTS - FREE TEXT/NARRATIVE: 70-year-old female presents to the emergency room for evaluation of generalized weakness and right arm numbness. She reports the weakness and arm numbness and waxing and waning for about 1-2 weeks. She is experienced some nausea this week. She had a recent hospitalization about 6 weeks ago which included workup with cardiology in follow-up for an echocardiogram. She's also had a brain MRI. All have been unremarkable. She's had a carotid ultrasound which she states was normal. Reason for admission about 6 weeks ago was she stated that she had a blackout episode. The numbness in her hand and arm have been going on periodically for the last couple weeks. She is not experiencing any new onset of symptoms such as chest pain, dyspnea, shortness of breath, or any diaphoretic episodes. She reports no loss of consciousness. She's been able to maintain a well-balanced diet and drinks water throughout the day. She denies any weight loss or gain. Called her primary care today to see if there is available appointment and she didn't mention the arm numbness which prompted them to suggest further workup in the emergency room. Onset: Gradual, Unknown/Unsure Duration: Week(s):, Intermittent, Waxing/Waning Location: Reports: Upper Extremity, Right, Generalized Severity: Mild Improves with: Reports: None Worsens with: Reports: None Associated Symptoms: Reports: Nausea/Vomiting, Weakness. Denies: Chest Pain, Cough, Diaphoresis, Fever/Chills, Headaches, Shortness of Breath - Related Data Allergies Allergy/AdvReac Type Severity Reaction Status Date / Time No Known Drug Allergies Allergy Cannot Verified 05/28/20 16:10 Remember Home Meds: Home Meds . [No Known Home Meds] 03/31/20 [History] ALPRAZolam [Alprazolam Odt] 0.25 mg PO BID PRN #10 tab.rapdis 04/02/20 [Rx] Metoprolol Succinate [Toprol XL] 25 mg PO DAILY #30 tab.er 04/02/20 [Rx] Past Medical History - Past Health History Medical/Surgical History: Denies Medical/Surgical History HEENT History: Reports: Cataract, Impaired Vision Cardiovascular History: Reports: None Respiratory History: Reports: None Gastrointestinal History: Reports: None Genitourinary History: Reports: None [employer] History: Reports: , Spontaneous Musculoskeletal History: Reports: Osteoporosis Neurological History: Reports: None Psychiatric History: Reports: None Endocrine/Metabolic History: Reports: Obesity/BMI 30+, Osteoporosis, Vitamin D Deficiency Hematologic History: Reports: None Immunologic History: Reports: None Oncologic (Cancer) History: Reports: Other (See Below) Other Oncologic History: skin cancer Dermatologic History: Reports: None - Infectious Disease History Infectious Disease History: Reports: Chicken Pox, Measles, Mumps - Past Surgical History HEENT Surgical History: Reports: None Cardiovascular Surgical History: Reports: None Respiratory Surgical History: Reports: None GI Surgical History: Reports: None Female Surgical History: Reports: Tubal Ligation Endocrine Surgical History: Reports: None Neurological Surgical History: Reports: None Oncologic Surgical History: Reports: None Dermatological Surgical History: Reports: None Social & Family History - Family History Family Medical History: Noncontributory - Tobacco Use Smoking Status *Q: Never Smoker - Caffeine Use Caffeine Use: Reports: Coffee - Recreational Drug Use Recreational Drug Use: No ED ROS GENERAL - Review of Systems Review Of Systems: See Below Constitutional: Reports: Weakness, Fatigue. Denies: Fever, Chills, Night Sweats, Diaphoresis, Decreased Appetite, Weight Loss, Weight Gain HEENT: Reports: Glasses. Denies: Ear Pain, Hearing Loss, Vertigo, Vision Change Respiratory: Denies: Shortness of Breath, Wheezing, Cough Cardiovascular: Denies: Chest Pain, Claudication, Dyspnea on Exertion, Edema, Lightheadedness, Orthopnea, Palpitations, PND, Syncope Endocrine: Reports: Fatigue. Denies: High Glucose GI/Abdominal: Reports: Nausea. Denies: Abdominal Pain, Bloody Stool, Constipation, Diarrhea, Decreased Appetite, Difficulty Swallowing, Vomiting : Denies: Dysuria, Hematuria, Pain, Urgency, Urinary Retention Musculoskeletal: Reports: Joint Pain (knees, recently injected with steroids, h/o djd) Skin: Reports: Rash (resolved on Abdomen about 1 week ago). Denies: Cyanosis, Jaundice, Dryness, Bruising Neurological: Reports: Numbness (right arm 1-2 weeks), Tingling. Denies: Confusion, Dizziness, Headache, Paresthesia, Pre-Existing Deficit, Seizure, Syncope, Trouble Speaking, Difficulty Walking, Weakness, Change in Speech Psychiatric: Reports: No Symptoms Hematologic/Lymphatic: Denies: Anemia, Easy Bleeding, Easy Bruising, Swollen Glands Immunologic: Reports: No Symptoms ED EXAM, GENERAL - Physical Exam Exam: See Below Exam Limited By: No Limitations General Appearance: Alert, WD/WN, No Apparent Distress Eye Exam: Bilateral Eye: EOMI, PERRL Ears: Normal External Exam, Normal Canal, Hearing Grossly Normal, Normal TMs Ear Exam: Bilateral Ear: TM normal Nose: Normal Inspection, Normal Mucosa, No Blood Throat/Mouth: Normal Inspection, Normal Lips, Normal Gums, Normal Oropharynx, Normal Voice, No Airway Compromise Head: Atraumatic, Normocephalic Neck: Normal Inspection, Supple, Non-Tender, Full Range of Motion Respiratory/Chest: No Respiratory Distress, Lungs Clear, Normal Breath Sounds, No Accessory Muscle Use, Chest Non-Tender Cardiovascular: Normal Peripheral Pulses, Regular Rate, Rhythm, No Edema, No JVD, No Murmur Peripheral Pulses: 2+: Carotid (L), Carotid (R), Radial (L), Radial (R), Dorsalis Pedis (L), Dorsalis Pedis (R) GI/Abdominal: Soft, Non-Tender, No Organomegaly, No Distention, No Mass Back Exam: Normal Inspection, Full Range of Motion Extremities: Normal Inspection, Normal Range of Motion, Non-Tender, No Pedal Edema Neurological: Alert, Oriented, CN II-XII Intact, Normal Cognition, Normal Gait, No Motor/Sensory Deficits Psychiatric: Normal Affect, Normal Mood Skin Exam: Warm, Dry, Intact, Normal Color, No Rash EKG INTERPRETATION EKG Date: 05/28/20 Time: 15:58 Rhythm: NSR Rate (Beats/Min): 63 [place]: Normal P-Wave: Present QRS: Normal ST-T: Normal QT: Normal Comparison: No Change (03/31/20) EKG Interpretation Comments: Normal sinus rhythm Voltage criteria for LVH, may be normal variant Course - Vital Signs Last Recorded V/S: Last Vital Signs Temp 98.4 F 05/28/20 16:02 Pulse 82 05/28/20 16:02 Resp 20 05/28/20 16:02 BP 151/79 H 05/28/20 16:02 Pulse Ox 94 L 05/28/20 16:02 - Orders/Labs/Meds Orders: Active Orders 24 hr Category Date Time Status EKG Documentation Completion [RC] ASDIRECTED Care 05/28/20 15:51 Active EKG 12 Lead [EK] Stat Ther 05/28/20 15:50 Ordered Labs: Laboratory Tests 05/28/20 05/28/20 Range/Units 15:50 15:50 WBC 6.31 (5.00-10.00) 10^3/uL RBC 4.97 (3.80-5.50) 10^6/uL Hgb 13.7 (12.0-16.0) g/dL Hct 42.1 (37.0-47.0) % MCV 84.7 (82.0-92.0) fL MCH 27.6 (27.0-31.0) pg MCHC 32.5 (32.0-36.0) g/dL RDW 12.5 (11.5-14.5) % Plt Count 214 (150-400) 10^3/uL MPV 9.7 (7.4-10.4) fL Immature Gran % (Auto) 0.2 (0.0-5.0) % Neut % (Auto) 65.2 (50.0-70.0) % Lymph % (Auto) 25.2 (20.0-40.0) % [place] % (Auto) 7.8 (2.0-8.0) % Eos % (Auto) 1.1 (1.0-3.0) % Baso % (Auto) 0.5 (0.0-1.0) % Neut # (Auto) 4.12 (2.50-7.00) 10^3/uL Lymph # (Auto) 1.59 (1.00-4.00) 10^3/uL [place] # (Auto) 0.49 (0.10-0.80) 10^3/uL Eos # (Auto) 0.07 L (0.10-0.30) 10^3/uL Baso # (Auto) 0.03 (0.00-0.10) 10^3/uL Immature Gran # (Auto) 0.01 (0.00-0.50) 10^3/uL Sodium 141 (136-145) mmol/L Potassium 3.9 (3.3-5.3) mmol/L Chloride 105 (98-115) mmol/L Carbon Dioxide 27.4 (21.0-32.0) mmol/L Anion Gap 12.5 (5-15) mmol/L BUN 17 (6-25) mg/dL Creatinine 0.72 (0.51-1.17) mg/dL Est Cr Clr Drug Dosing TNP Estimated GFR (MDRD) > 60 mL/min Glucose 123 H (75 - 99) mg/dL Calcium 8.9 (8.7-10.3) mg/dL Total Bilirubin 0.5 (0.2-1.0) mg/dL AST 2 L (15-37) U/L ALT 13 (12-78) U/L Alkaline Phosphatase 78 (46-116) IU/L Troponin I 0.05 (0.00-0.070) ng/mL Total Protein 7.3 (6.4-8.2) g/dL Albumin 3.68 (3.00-4.80) g/dL Meds: Medications Discontinued Medications Generic Name Dose Route Start Last Admin Trade Name Freq PRN Reason Stop Dose Admin Ondansetron HCl 4 mg 05/28/20 16:19 05/28/20 16:20 Zofran Odt PO 05/28/20 16:20 4 mg ONETIME ONE Administration Ondansetron HCl Confirm 05/28/20 16:18 Zofran Odt Administered 05/28/20 16:19 Dose 4 mg .ROUTE .STK-MED ONE - Re-Assessments/Exams Free Text/Narrative Re-Assessment/Exam: 05/28/20 17:05 Zofran 4 mg ODT given for nausea. Patient noted it was helpful. Departure - Departure Time of Disposition: 17:06 Disposition: Home, Self-Care 01 Condition: Good Clinical Impression: Nausea alone, Episode of generalized weakness, Numbness and tingling of right arm - Discharge Information Instructions: Carpal Tunnel Syndrome, [id number], Weakness, [id number], Nausea, Adult, [id number] Referrals: Rowena Pacheco, [facility] [Primary Care Provider] - Forms: ED Department Discharge Sepsis Event Note (ED) - Evaluation Sepsis Screening Result: No Definite Risk - Focused Exam Vital Signs: Vital Signs Temp Pulse Resp BP Pulse Ox 05/28/20 16:02 98.4 F 82 20 151/79 H 94 L - My Orders Last 24 Hours: My Active Orders 05/28/20 15:50 EKG 12 Lead [EK] Stat 05/28/20 15:51 EKG Documentation Completion [RC] ASDIRECTED - Assessment/Plan Last 24 Hours: My Active Orders 05/28/20 15:50 EKG 12 Lead [EK] Stat 05/28/20 15:51 EKG Documentation Completion [RC] ASDIRECTED Assessment:: 1. Nausea 2. Episode of generalized weakness 3. Arm numbness right Plan: 1. Follow-up with Rowena Hayes [facility] for medical complaints. 2. She may be experiencing symptoms of carpal tunnel in her right arm in EMG can confirm this. 3. Zofran 4 mg ODT as needed for nausea. 4. Continue eating a well balanced healthy diet and continue with water for hydration 5. Recommend he follow-up for your yearly rechecks and routine medical exams which include a colonoscopy. 6. Any of the symptoms should worsen or new onset of pronounced weakness, slurred speech, balance problems, chest pain he should return to the emergency room immediately.
== END 2020-05-28 17:00 | disposition home or self-care (01) ==
LOC: KA.ED 15:35
DX: R20.2 Paresthesia of skin (principal); R11.0 Nausea; R53.1 Weakness; E66.9 Obesity, unspecified; Z79.899 Other long term (current) drug therapy; Z68.32 Body mass index [BMI] 32.0-32.9, adult
CPT/HCPCS: 36415; 71046; 80053; 84484; 85025; 93005; 99284; 99285-25; A9270-GY

== ENCOUNTER 2023-12-12 14:34 | Observation (INO) | payer MEDICARE, OTHER ==
[2023-12-12 15:09] LABS: BASOPHILS ABSOLUTE AUTO 0.03 10^3/uL (0.00-0.10); BASOPHILS PERCENT AUTO 0.2 % (0.0-1.0); EOSINOPHILS ABSOLUTE AUTO 0.03 10^3/uL (0.10-0.30); EOSINOPHILS PERCENT AUTO 0.2 % (1.0-3.0); HEMATOCRIT 42.6 % (37.0-47.0); HEMOGLOBIN 14.2 g/dL (12.0-16.0); IMMATURE GRAN ABSOLUTE AUTO 0.01 10^3/uL (0.00-0.50); IMMATURE GRAN PERCENT AUTO 0.1 % (0.0-5.0); LYMPHOCYTES ABSOLUTE AUTO 1.35 10^3/uL (1.00-4.00); LYMPHOCYTES PERCENT AUTO 9.4 % (20.0-40.0); MEAN CORPUSCULAR HEMOGLOBIN 27.6 pg (27.0-31.0); MEAN CORPUSCULAR HGB CONC 33.3 g/dL (32.0-36.0); MEAN CORPUSCULAR VOLUME 82.9 fL (82.0-92.0); MEAN PLATELET VOLUME 9.8 fL (7.4-10.4); MONOCYTES ABSOLUTE AUTO 1.21 10^3/uL (0.10-0.80); MONOCYTES PERCENT AUTO 8.5 % (2.0-8.0); NEUTROPHILS ABSOLUTE AUTO 11.67 10^3/uL (2.50-7.00); NEUTROPHILS PERCENT AUTO 81.6 % (50.0-70.0); PLATELET COUNT,PLT 213 10^3/uL (150-400); RED BLOOD CELL COUNT 5.14 10^6/uL (3.80-5.50); RED CELL DISTRIBUTION WIDTH 12.7 % (11.5-14.5)
[2023-12-12 15:30] LABS: ALBUMIN 3.46 g/dL (3.40-5.00); ANION GAP 13.6 mmol/L (5-15); BILIRUBIN TOTAL 0.6 mg/dL (0.2-1.0); CALCIUM 9.5 mg/dL (8.7-10.3); CARBON DIOXIDE,CO2 27.9 mmol/L (21.0-32.0); CREATININE 0.67 mg/dL (0.51-1.17); EST CRCL DRUG DOSING (CG) 57.27 mL/min; POTASSIUM,K 4.5 mmol/L (3.5-5.1); PROTEIN TOTAL,TP 7.2 g/dL (6.4-8.2)
[2023-12-12 15:31] LABS: LACTIC ACID 1.1 mmol/L (0.4-2.0)
[2023-12-12 15:47] LABS: APPEARANCE,URINE SLIGHTLY CLOUDY (CLEAR); BILIRUBIN,URINE NEGATIVE (NEGATIVE); COLOR,URINE YELLOW (YELLOW); GLUCOSE,URINE NEGATIVE (NEGATIVE); KETONES,URINE 40 mg/dL (NEGATIVE); LEUKOCYTE ESTERASE,URINE MODERATE (NEGATIVE); NITRITE,URINE NEGATIVE (NEGATIVE); OCCULT BLOOD,URINE TRACE-LYSED (NEGATIVE); PROTEIN,URINE NEGATIVE (NEGATIVE); UROBILINOGEN,URINE 0.2 E.U./dL (0.2-1.0)
[2023-12-12 15:53] LABS: INFLUENZA A NAA NEGATIVE (NEGATIVE); INFLUENZA B NAA NEGATIVE (NEGATIVE); RESPIRATORY SYNCYTIAL VIR NAA NEGATIVE (NEGATIVE)
[2023-12-12 15:57] LABS: CORONAVIRUS COVID-19 NAA NEGATIVE (NEGATIVE)
[2023-12-12 16:00] LABS: BACTERIA,URINE FEW /HPF (NONE TO FEW); EPITHELIAL CELLS,URINE FEW /LPF; MUCUS,URINE FEW /LPF (NEGATIVE); RBC,URINE 0-5 /HPF (0-5)
[2023-12-12] MEDS: Sodium Chloride 0.9% 50 ML IV SCH (16:33)
[2023-12-12] MEDS: Iopamidol 755 Mg/ML 100 ML Bottle IV ONE (16:33)
[2023-12-12] MEDS ORDERED: Naloxone 0.4 MG/ML SDV IVPUSH PRN (17:11)
[2023-12-12] MEDS ORDERED: Ciprofloxacin in D5W 400 MG in Premix Bag 1 BAG IV SCH (17:15)
[2023-12-12] MEDS: Ondansetron 4 MG/2 ML SDV IVPUSH ONE (17:31)
[2023-12-12] MEDS: HYDROmorphone 1 MG/ML Syringe IVPUSH ONE (17:34)
[2023-12-12] MEDS: metroNIDAZOLE/Normal Saline 500 MG in Premix Bag 1 BAG IV SCH (17:53)
[2023-12-12] MEDS: Sodium Chloride 0.9% 100 ML ONE (18:11)
[2023-12-12] MEDS: Sodium Chloride 0.9% 100 ML IV SCH (18:28)
[2023-12-12] MEDS ORDERED: Acetaminophen 325 MG Tab PO PRN (18:33)
[2023-12-12] MEDS ORDERED: Ketorolac 30 MG/ML SDV IVPUSH PRN (18:33)
[2023-12-12] MEDS ORDERED: Morphine 2 MG/ML SYRINGE IVPUSH PRN (18:33)
[2023-12-12] MEDS ORDERED: Albuterol 8 GM Inhaler INH PRN (18:42)
[2023-12-12] MEDS ORDERED: Fluticasone NASAL Spray 16 GM Bottle NASBOTH PRN (18:42)
[2023-12-12] MEDS ORDERED: Ondansetron 4 MG/2 ML SDV IVPUSH PRN (18:42)
[2023-12-12] MEDS ORDERED: Sodium Chloride 0.9% 1,000 ML IV SCH (18:43)
[2023-12-12] MEDS ORDERED: metroNIDAZOLE/Normal Saline 500 MG in Premix Bag 1 BAG IV SCH (18:45)
[2023-12-12] MEDS: Ciprofloxacin in D5W 400 MG in Premix Bag 1 BAG IV SCH (19:35)
[2023-12-12] MEDS: Sodium Chloride 0.9% 1,000 ML IV SCH (19:36)
[2023-12-13 07:30] LABS: HEMATOCRIT 41.2 % (37.0-47.0); HEMOGLOBIN 13.4 g/dL (12.0-16.0); MEAN CORPUSCULAR HEMOGLOBIN 27.5 pg (27.0-31.0); MEAN CORPUSCULAR HGB CONC 32.5 g/dL (32.0-36.0); MEAN CORPUSCULAR VOLUME 84.4 fL (82.0-92.0); MEAN PLATELET VOLUME 9.9 fL (7.4-10.4); PLATELET COUNT,PLT 203 10^3/uL (150-400); RED BLOOD CELL COUNT 4.88 10^6/uL (3.80-5.50); RED CELL DISTRIBUTION WIDTH 12.9 % (11.5-14.5)
[2023-12-13 07:46] LABS: ANION GAP 13.4 mmol/L (5-15); CALCIUM 8.6 mg/dL (8.7-10.3); CARBON DIOXIDE,CO2 27.2 mmol/L (21.0-32.0); CREATININE 0.67 mg/dL (0.51-1.17); EST CRCL DRUG DOSING (CG) 57.27 mL/min; MAGNESIUM 1.9 mg/dL (1.8-2.4); POTASSIUM,K 3.6 mmol/L (3.5-5.1)
[2023-12-13] MEDS: Metoprolol Succinate 25 MG Tab.ER PO SCH (08:15)
[2023-12-13] MEDS ORDERED: Simethicone 80 MG Tab.Chew PO PRN (08:51)
[2023-12-13] MEDS: Metoclopramide 10 MG/2 ML SDV IVPUSH SCH (09:33)
[2023-12-13] MEDS: Sodium Chloride 0.9% 10 ML Syringe FLUSH PRN (14:52)
[2023-12-13] MEDS ORDERED: Ciprofloxacin in D5W 400 MG in Premix Bag 1 BAG IV SCH (17:15)
[2023-12-13] MEDS: Sodium Chloride 0.9% 100 ML IV SCH (18:13)
[2023-12-14 07:21] LABS: HEMATOCRIT 38.4 % (37.0-47.0); HEMOGLOBIN 12.5 g/dL (12.0-16.0); MEAN CORPUSCULAR HEMOGLOBIN 27.5 pg (27.0-31.0); MEAN CORPUSCULAR HGB CONC 32.6 g/dL (32.0-36.0); MEAN CORPUSCULAR VOLUME 84.6 fL (82.0-92.0); PLATELET COUNT,PLT 202 10^3/uL (150-400); RED BLOOD CELL COUNT 4.54 10^6/uL (3.80-5.50); RED CELL DISTRIBUTION WIDTH 12.8 % (11.5-14.5); WHITE BLOOD CELL COUNT,WBC 6.75 10^3/uL (5.00-10.00)
[2023-12-14 09:40] LABS: ANION GAP 11.9 mmol/L (5-15); CALCIUM 8.2 mg/dL (8.7-10.3); CARBON DIOXIDE,CO2 29.4 mmol/L (21.0-32.0); CREATININE 0.72 mg/dL (0.51-1.17); EST CRCL DRUG DOSING (CG) 53.3 mL/min; MAGNESIUM 1.8 mg/dL (1.8-2.4); POTASSIUM,K 4.3 mmol/L (3.5-5.1)
[2023-12-14] MEDS ORDERED: metroNIDAZOLE 500 MG Tab PO SCH (20:00)
[2023-12-14] MEDS ORDERED: Ciprofloxacin 500 MG Tab PO SCH (21:00)
== END 2023-12-14 12:51 | disposition home or self-care (01) ==
LOC: KA.ED 14:34 → KA.MS 17:19
PROVIDERS: ADMIT Internal Medicine; ATTEND Internal Medicine
DX: K57.30 Diverticulosis of large intestine without perforation or abscess without bleeding (principal); I49.3 Ventricular premature depolarization; N30.01 Acute cystitis with hematuria; E66.9 Obesity, unspecified; Z68.37 Body mass index [BMI] 37.0-37.9, adult; Z79.899 Other long term (current) drug therapy; Z88.8 Allergy status to other drugs, medicaments and biological substances
CPT/HCPCS: 0241U; 36415; 74177; 80048; 80053; 81001; 82150; 83605; 83690; 83735; 83880; 84484; 85025; 85027; 87040; 87086; 87088; 87186; 96365; 96375; 99284; 99285-25; A9270-GY; J0744; J1170; J1836; J2405; J2765; J3490; J7030; Q3014; Q9967

== ENCOUNTER 2024-07-30 09:51 | Day surgery (SDC) | payer BC, MEDICARE ==
[2024-07-30] MEDS ORDERED: Sodium Chloride 0.9% 10 ML Syringe FLUSH PRN (10:00)
[2024-07-30] MEDS: Lactated Ringers 1,000 ML IV SCH (10:34)
[2024-07-30] MEDS ORDERED: Propofol 200 MG/20 ML SDV ONE (10:43)
[2024-07-30] MEDS ORDERED: Midazolam 1 MG/ML 2 ML SDV ONE (10:43)
== END 2024-07-30 12:29 | disposition home or self-care (01) ==
LOC: KA.SDS 09:51
PROVIDERS: ATTEND Family Medicine
DX: Z12.11 Encounter for screening for malignant neoplasm of colon (principal); K57.30 Diverticulosis of large intestine without perforation or abscess without bleeding
CPT/HCPCS: 00812; 99100; J2250; J2704; J3490; J7120

== ENCOUNTER 2024-12-05 12:45 | Emergency (ER) | payer MEDICARE ==
[2024-12-05] MEDS ORDERED: Sodium Chloride 0.9% 10 ML Syringe FLUSH PRN (12:56)
[2024-12-05 13:18] LABS: BASOPHILS ABSOLUTE AUTO 0.03 10^3/uL (0.00-0.10); BASOPHILS PERCENT AUTO 0.5 % (0.0-1.0); EOSINOPHILS ABSOLUTE AUTO 0.13 10^3/uL (0.10-0.30); HEMOGLOBIN 13.8 g/dL (12.0-16.0); IMMATURE GRAN ABSOLUTE AUTO 0.01 10^3/uL (0.00-0.04); IMMATURE GRAN PERCENT AUTO 0.2 % (0.0-0.4); LYMPHOCYTES ABSOLUTE AUTO 1.94 10^3/uL (1.00-4.00); LYMPHOCYTES PERCENT AUTO 30.6 % (20.0-40.0); MEAN CORPUSCULAR HEMOGLOBIN 27.7 pg (27.0-31.0); MEAN CORPUSCULAR HGB CONC 32.9 g/dL (32.0-36.0); MEAN CORPUSCULAR VOLUME 84.3 fL (82.0-92.0); MEAN PLATELET VOLUME 9.9 fL (7.4-10.4); MONOCYTES ABSOLUTE AUTO 0.62 10^3/uL (0.10-0.80); MONOCYTES PERCENT AUTO 9.8 % (2.0-8.0); NEUTROPHILS ABSOLUTE AUTO 3.62 10^3/uL (2.50-7.00); NEUTROPHILS PERCENT AUTO 56.9 % (50.0-70.0); PLATELET COUNT,PLT 215 10^3/uL (150-400); RED BLOOD CELL COUNT 4.98 10^6/uL (3.80-5.50); RED CELL DISTRIBUTION WIDTH 12.7 % (11.5-14.5); WHITE BLOOD CELL COUNT,WBC 6.35 10^3/uL (5.00-10.00)
[2024-12-05] MEDS: Sodium Chloride 0.9% 1,000 ML IV ONE (13:28)
[2024-12-05] MEDS: Ondansetron 4 MG/2 ML SDV IVPUSH ONE (13:28)
[2024-12-05 13:38] LABS: ALBUMIN 3.44 g/dL (3.40-5.00); ANION GAP 12.1 mmol/L (5-15); BILIRUBIN TOTAL 0.4 mg/dL (0.2-1.0); CALCIUM 9.2 mg/dL (8.7-10.3); CARBON DIOXIDE,CO2 28.1 mmol/L (21.0-32.0); CREATININE 0.76 mg/dL (0.51-1.17); EST CRCL DRUG DOSING (CG) 50.94 mL/min; POTASSIUM,K 4.2 mmol/L (3.5-5.1)
[2024-12-05] MEDS: Enalaprilat 1.25 MG/ML SDV IVPUSH ONE (13:59)
== END 2024-12-05 14:45 | disposition home or self-care (01) ==
LOC: KA.ED 12:45
DX: I10 Essential (primary) hypertension (principal); R11.2 Nausea with vomiting, unspecified; Z88.8 Allergy status to other drugs, medicaments and biological substances; Z79.899 Other long term (current) drug therapy
CPT/HCPCS: 36415; 80053; 83690; 85025; 96361; 96374; 96375; 99284-25; J2405; J3490; J7030